=== PATIENT | male | born 1975 | race Caucasian/White ===

== ENCOUNTER 2018-09-07 05:14 | Emergency (ER) | payer SELFPAY ==
[~2018-09-07] VITALS: Ht 165.1 cm; Wt 66.0 kg
[2018-09-07] MEDS ORDERED: SODIUM CHLORIDE 0.9% 1,000 ML IV ONE (05:37)
[2018-09-07] MEDS ORDERED: ONDANSETRON HCL 4MG/2ML INJ IV STA (05:37)
[2018-09-07] MEDS ORDERED: ASPIRIN 81MG TABLET PO ONE (05:45)
[2018-09-07] MEDS ORDERED: ENOXAPARIN 60MG/0.6ML SYR SUBCUT ONE (05:45)
[2018-09-07] MEDS ORDERED: NITROGLYCERIN OINT 1GM/INCH UDPKT TD ONE (05:45)
[2018-09-07 05:56] LABS: HEMATOCRIT. 58.2 % (42.0-52.0); HEMOGLOBIN. 19.8 g/dL (14.0-18.0); MEAN CORPUSCULAR HEMOGLOBIN 31.7 pg (28.0-32.0); MEAN CORPUSCULAR VOLUME 93.4 fL (80.0-94.0); RED BLOOD CELL COUNT 6.23 mill/uL (4.7-6.1); RED CELL DISTRIBUTION WIDTH 13.2 % (11.6-14.6)
[2018-09-07 05:58] LABS: CHLORIDE 107 mEq/L (98-107)
[2018-09-07 06:02] LABS: PARTIAL THROMBOPLASTIN TIME 25.5 sec (23.4-31.0); PROTHROMBIN TIME 10.5 sec (9.6-11.0)
[2018-09-07 06:14] VITALS: BP 136/98
[2018-09-07 07:02] LABS: PLATELET 158 x1000/uL (130-400); PLATELET ESTIMATE NORMAL
== END 2018-09-07 06:21 | disposition short-term general hospital (02) ==
LOC: ER 05:14
DX: I21.3 ST elevation (STEMI) myocardial infarction of unspecified site (principal); E78.00 Pure hypercholesterolemia, unspecified
CPT/HCPCS: 36415; 71045; 80053; 83880; 84484; 85025; 85610; 85730; 93005; 96372; 96374; 99291; J1650; J2405; J7030; Z7610